=== PATIENT | female | born 1970 | race Caucasian/White ===

== ENCOUNTER 2024-09-06 22:12 | Inpatient (IN) | payer OTHER, MEDICAID, SELFPAY ==
[2024-09-06] VITALS (8 sets, daily range): BP systolic 94–178; BP diastolic 71–89; BMI 16.4; BMI 22.1
--- NOTE | 2024-09-06 17:32 | ED.GENMED ---
Addendum entered and electronically signed by Delfin Matamoros DO 09/08/24 06:20:
30 minutes critical care time
Original Note:
History of Present Illness
General
Chief Complaint: Breathing Problem
Source: patient
Exam Limitations: none
Time Seen by Provider: 09/06/24 16:29
Nursing documentation reviewed up to this point in time: agreed with
History of Present Illness
History of Present Illness:
54-year-old female PCP referral, ex-smoker social drinker has not seen a physician in years was scheduled have cataract surgery referred to primary care clinic apparently found to have tachycardia shortness of breath referred to cardiology who
wanted a Holter and an echo and a stress test apparently insurance interfered with that process, she was able to get her cataracts done well, she has fatigue, shortness of breath, weight loss, nausea trouble sleeping, palpitations
Past History
Past History
ED Past Medical History: Arrthythmia
ED Past Surgical History: Other (Eye surgery)
Social History
Tobacco: Former smoker
Alcohol: Daily (2 glasses of wine a day)
Drug: None
Living: with family
Employment: Employed
Review of Systems
Review of Systems
All Other Systems: Not applicable
Constitutional: Reports weight loss, fatigue and sleep disturbance
EENT: Reports no symptoms
Respiratory: Reports trouble breathing
Cardiac: Denies chest pain
ABD/GI: Denies abdominal pain
: Reports no symptoms
Musculoskeletal: Reports no symptoms
Neurological: Reports dizzy and weakness
Hematologic/Lymphatic: Reports no symptoms
Phy Exam
Physical Exam
Physical Exam:
Physical Exam
General: no apparent distress, not acutely ill
Neck: No goiter no jaundice
Heart: Tachycardia
Lungs: Without wheeze
Abdomen nontender
Neuro: alert and oriented. no focal neurological deficits
Skin: no rash
Psychiatric: well kept. interactive and cooperative
Extremities: no edema. no calf tenderness.
Scores
Heart Failure Risk
Heart Failure Risk Score: Yes
History of Stroke or TIA: No
History of intubation for respiratory distress: No
Heart rate on ED arrival >/= 110: Yes
SaO2 <90% on arrival on room air: No
HR >/=110 during 3min walk test (or too ill to perform test): Yes
ECG has acute ischemic changes: Yes
Urea >/=12mmol/L (BUN 33.6mg/dL): No
Serum CO2>/=35mmol/L: No
Troponin I or T elevated to TN Level (0.4mg/dL): No
NT-proBNP >/=5,000ng/L (5,000pg/ml): Yes
HF Risk Score: 5
Admission Status: VERY HIGH RISK 39.8% Consider admission to hospital
Course
Orders/Labs/Results
Orders:
Orders
09/06/24 15:35
EKG [Electrocardiogram (*1)] Urgent
Reason for Study: Shortness of Breath
EKG- Treatment ONCE
09/06/24 17:16
CR Chest Portable - 1 View Urgent
Comment:
Reason For Exam: soob
Reason Study Needs to be Portable: Patient Unstable
09/06/24 17:27
Add On- LAB Urgent
Tests Added?: magnesium
Cardiac Monitoring- Treatment ONCE
Diltiazem HCl [Cardizem] 10 mg IV NOW STA
09/06/24 18:22
BNP [NT-proBNP] Urgent
Complete Blood Count/With Diff Urgent
Comprehensive Metabolic Panel Urgent
Magnesium Urgent
TSH Reflex To Free T4 Urgent
Troponin I Urgent
09/06/24 18:38
Diltiazem 125 mg/125 ml Nss [Cardizem] 125 mg in 125 ml IV NOW
Initial dose in mg/hr, then titrate:: 10
Titrate to keep:: Heart rate 80-100 bpm
Titrate by mg/hr:: 5 mg/hr
Frequency of titrations (minutes):: 15
Maximum dose in mg/hr:: 15
09/06/24 19:37
EKG [Electrocardiogram (*1)] Urgent
Reason for Study: Tachycardia
09/06/24 19:38
EKG- Treatment ONCE
09/06/24 19:51
Magnesium Sulfate 1 G/D5w [Magnesium Sulfate] 1 gm in 100 ml IV NOW
09/06/24 19:52
CT Chest PE Study Urgent
Comment:
Reason For Exam: tachy sob
09/06/24 21:02
Troponin I Stat
Abnormal Lab Results
09/06/24
18:22
MPV 11.1 H fL
(7.4-10.4)
Chloride 108 H mmol/L
(98-107)
Glucose 108 H mg/dl
(70-99)
Magnesium 1.5 L mg/dl
(1.6-2.3)
AST 46 H U/L
(14-36)
Troponin I 0.045 H* ng/ml
09/06/24 18:22
09/06/24 18:22
Vital Signs
Initial and Last Documented VS:
Initial Vital Signs
Temp Pulse Resp BP Pulse Ox
98.0 F 134 22 134/86 97
09/06/24 15:45 09/06/24 15:45 09/06/24 15:45 09/06/24 15:45 09/06/24 15:45
Last Documented Vital Signs
Temp Pulse Resp BP Pulse Ox
98.0 F 113 17 107/89 95
09/06/24 15:45 09/06/24 20:15 09/06/24 20:15 09/06/24 20:00 09/06/24 20:15
MDM/Problems Addressed
Differential Diagnosis Includes:
Heart failure arrhythmia anemia electrolyte abnormality valvular disease
Chronic conditions affecting care: Arrhythmia
Acute Exacerbation and/or Progression of Chronic Illness: Arrhythmia
*Radiology
Radiology exam reviewed: radiology read reviewed
*Pulse Oximetry
SaO2: 94
Oxygen Mode of Delivery: Room air
Patient hypoxic: no
*EKG
Interpreted by ED Provider?: Yes
Interpretation: abnormal
Comparison EKG: no comparison EKG present
Heart Rate: 124
Rate: tachycardiac
Rhythm: SVT
[place]: left axis deviation
Ischemia: non-specific ST changes
*Correctional Guard Interpretation
Rate: tachycardiac
Interpretation: abnormal
Heart Rate: 124
Rhythm: sinus
*Critical Care Note
Total Time (30-74mins, 75-104mins- exclusive of procedures): 15
Update Note
Update Note:
[address] of the chest noted, no PE positive heart failure
ED Attending Note
-
Portions of this chart may have been created with voice recognition software.� Occasional wrong word or��sound alike� substitutions may have occurred due to the inherent limitations of voice recognition software.
Discharge Plan
Departure
Patient Disposition: Admit
Date of Disposition: 09/06/24
Time of Disposition: 21:05
Admit to: IVU
Presentation/result/management discussed w/ accepting MD/DO: Hospitalist
Patient with high blood pressure during this ER visit?: Yes
Condition: Fair
Covid-19: Not Applicable
Discharge Problem:
Shortness of breath
Referrals:
PRIVATE,PHYSICIAN [Family Provider, Internal Medicine]
Interventions
Interventions:
*Risk Screen - Suicide Last Done: 09/06/24 18:33
*General Assessment Last Done: 09/06/24 15:45
*Neglect/Abuse Screening Last Done: 09/06/24 18:33
*ED- Fall Risk Assessment Last Done: 09/06/24 18:33
*ED COVID-19 Vaccine History Last Done: 09/06/24 18:33
ED- Cardiac Assessment Last Done: 09/06/24 18:33
ED- Pulmonary Assessment Last Done: 09/06/24 18:33
Discharge Date and Time
Print Language: SAMMARINESE
[2024-09-06] MEDS: CARDIZEM 10 MG IV (18:27)
[2024-09-06 18:34] LABS: Hematocrit 42.8 % (37.0-47.0); Hemoglobin 14.4 g/dL (12.0-16.0); Mean Corp Hgb Conc. 33.6 g/dL (33.0-37.0); Mean Corpuscular Volume 88.8 fL (81.0-99.0); Nucleated Red Blood Cells % 0 %; Platelet Count 205 10^3/uL (130-400); Red Cell Dist. Width 13.6 % (11.5-14.5)
[2024-09-06] MEDS: CARDIZEM 125 IV (18:54)
[2024-09-06 19:27] LABS: Troponin I 0.045 ng/ml
[2024-09-06 19:38] LABS: ALT (SGPT) 35 U/L (0-35); AST (SGOT) 46 U/L (14-36); Albumin 4.5 g/dl (3.5-5.0); Alkaline Phosphatase 79 U/L (38-126); Blood Urea Nitrogen 10 mg/dl (7-17); Calcium 9.5 mg/dl (8.4-10.2); Carbon Dioxide 25 mmol/L (22-30); Chloride 108 mmol/L (98-107); Estimated Creatinine Clearance 91 ml/min; Glucose 108 mg/dl (70-99); Magnesium 1.5 mg/dl (1.6-2.3); Potassium 4.0 mmol/L (3.5-5.1); Sodium 138 mmol/L (135-145); Total Protein 7.1 g/dl (6.3-8.2); eGFR > 60.00
[2024-09-06] MEDS: MAGNESIUM SULFATE 100 IV (20:16)
--- NOTE | 2024-09-06 20:19 | HPS.HSE ---
Addendum entered and electronically signed by Wale Ballard DO 09/06/24 22:06:
Patient seen and examined independently. Agree with findings and plan as set forth by MAGDALENA Javed.
Patient is a 54y F with [facility] significant for cataracts who presents to ED from PCP office for evaluation of tachycardia and SOB. Patient states that her symptoms have been ongoing to some extent for at least several months. She notes episodes of
palpitations and dyspnea with exertion. She was seen by physician for the first time in years recently for pre-op eval for cataracts (early?). She was noted to have tachycardia at that time and was referred to Cardiology. Work-up including
stress, echo and Holter monitor was recommended. She completed the Holter monitor so far (interpretation pending).
For the past two days, she has been having increased palpitations and now dyspnea at rest - which is new.
At the time of my examination, patient is resting comfortably. She ambulated to the bathroom and back without chest pain, dyspnea, etc.
Ass:
Acute on Chronic HF - Unknown Type
Tachyarrhythmia
LBBB
Abnormal Troponin
Plan:
Admit to IVU for further evaluation and treatment.
Begin IV heparin given dynamic T wave changes on EKG, mildly elevated troponin, etc.
Patient is symptom-free at present.
Follow troponin to peak.
Echo in AM.
Cardiology consulted for further recommendations / possible ischemic evaluation.
IV Lasix daily for now with bibasilar rales, heart murmur (? acuity) and elevated ProBNP.
Follow for any new / recurrent symptoms.
Original Note:
Family Physician
-
Family Physician:
Chief Complaint
-
tachycardia and shortness of breath
History of Present Illness
Patient is a 54-year-old female with past medical history significant for left bundle branch block and hyperlipidemia who presented to [facility] ED for evaluation of tachycardia and shortness of breath. Patient states that she has not been treated for
any medical problems in the past, only daily medications are hormonal replacement for being post menopausal and daily supplements. Patient reports not feeling well for approximately 2 months and has gotten significantly worse. She reports nausea at
night with dry heaving, decreased appetite and 15-20 pound weight loss, decreased sleep, intermittent palpitations and significant dyspnea at rest. Patient reported last night was so uncomfortable she called her father at midnight and eventually
came for evaluation today. Denies any recent fever, chills, cough, chest pain or changes in bowel or bladder.
Medical History
Past Medical History
Past Medical History: Reports Other
Additional Past Medical History:
hyperlipidemia
left bundle branch block
Past Surgical History: Reports Other
Additional Past Surgical History:
bilateral cataract extraction
adenoidectomy
Social History
Tobacco: Former Smoker (quit 5-6 years ago)
Alcohol: Daily (2 glasses of wine )
Drug: None
Living: Alone
Employment: Employed
Family History
Family History: Other (Father: a-fib, bradycardia, pacemaker; Mother: CVA)
Allergies / Home Medications
Allergies reflects when Allergies were last updated in [facility].
Home Medications with original date entered in [facility]
Allergy/Medication List:
Allergies
Allergy/AdvReac Type Severity Reaction Status Date / Time
No Known Allergies Allergy Unverified 09/06/24 15:44
Review of Systems
-
History Source: Patient
Constitutional: Reports Weight Loss (12-20 pounds ) and Sleep Disturbance (inability to sleep longer than 4 hours)
EENT: Reports No Symptoms
Respiratory: Reports Other (dyspnea at rest )
Cardiac: Reports Palpitations and Other (dyspnea at rest)
Abdomen/GI: Reports Nausea
: Reports No Symptoms
Musculoskeletal: Reports No Symptoms
Skin: Reports No Symptoms
Neurological: Reports No Symptoms
Endocrine: Reports No Symptoms
Hematologic/Lymphatic: Reports No Symptoms
Psych: Reports No Symptoms
Physical Exam
Vital Signs
Vital Signs
Temp Pulse Resp BP Pulse Ox
98.0 F 113 17 107/89 95
09/06/24 15:45 09/06/24 20:15 09/06/24 20:15 09/06/24 20:00 09/06/24 20:15
Physical Exam
General: Well Developed, Well Nourished, No Apparent Distress and Conversant
HEENT: NormoCephalic, Moist mucous membranes and Atraumatic
Respiratory: Clear, Rales and Non Labored Respirations
Cardiac: S1/S2, Regular Rhythm, Tachycardia and Murmur; No Rub or Gallop
Breast: Deferred by me
GI: Soft, Non Tender, Non Distended and Normal Bowel Sounds; No Organomegaly
Rectal: Deferred by Provider
Genito-urinary: Deferred by me
Musculoskeletal: No Clubbing, No Cyanosis and No Edema
Skin: Warm and IV/Catheter Site
Neuro: Awake, Alert, AO x 3 and Nonfocal/grossly intact
Psych: Calm and Intact Judgment/Insight
Laboratory Results
-
09/06/24 18:22
09/06/24 18:22
Laboratory Results
Total Bilirubin 0.8 mg/dl (0.2-1.3) 09/06/24 18:22
AST 46 U/L (14-36) H 09/06/24 18:22
ALT 35 U/L (0-35) 09/06/24 18:22
Alkaline Phosphatase 79 U/L (38-126) 09/06/24 18:22
Troponin I 0.045 ng/ml H* 09/06/24 18:22
Data Reviewed
-
Diagnostic Radiology: Report Reviewed by me (CXR: Mild cardiomegaly. No focal airspace disease.)
CT Scan: Report Reviewed by me (Chest: 1. No evidence of central or segmental pulmonary embolism. 2. Cardiomegaly with pronounced dilation of the left ventricle. There are findings of mild pulmonary edema with a small right and trace left pleural
effusions with associated bibasilar atelectasis.)
Medical Tests (Nuc Med, Echo, EKG etc): Report Reviewed by me (EKG: SINUS TACHYCARDIA LEFT BUNDLE BRANCH BLOCK)
Lab Data: Labs Reviewed by me (Mag 1.5, trop 0.045, pBNP 6210)
Impression/Plan
-
IMPRESSION/PLAN:
#tachycardia and dyspnea at rest 2/2 NSTEMI vs. arrhythmia vs. PE vs. unstable angina
#CHF
Mag 1.5, trop 0.045, pBNP 6210
EKG: SINUS TACHYCARDIA
LEFT BUNDLE BRANCH BLOCK
CXR: Mild cardiomegaly. No focal airspace disease.
Chest CT: 1. No evidence of central or segmental pulmonary embolism.
2. Cardiomegaly with pronounced dilation of the left ventricle. There are findings of mild pulmonary edema with a small right and trace left pleural effusions with associated bibasilar atelectasis.
- Admit to IVU
- Consult Cardiology
- start heparin gtt
- trend troponin
- stop diltiazem
- IV Lasix
- daily weights
- I & Os
- ECHO in AM
#hyperlipidemia
#left bundle branch block
Code status: full code
DVT prophylaxis: heparin gtt
[2024-09-06] MEDS: ASPIRIN 325 MG PO (22:10)
[2024-09-06] MEDS: LASIX 40 MG IV (22:11)
[2024-09-06 22:13] LABS: Troponin I 0.060 ng/ml
[2024-09-06] MEDS: HEPARIN 3800 UNITS IV (22:24)
[2024-09-06] MEDS: HEPARIN 25000 UNITS/250 ML IV (22:25)
[2024-09-06] MEDS: FLUSH (NSS) 1 FLUSH IV (22:27)
[2024-09-06 22:37] LABS: Hematocrit 37.2 % (37.0-47.0); Hemoglobin 12.8 g/dL (12.0-16.0); Mean Corp Hgb Conc. 34.4 g/dL (33.0-37.0); Mean Corpuscular Volume 89.2 fL (81.0-99.0); Platelet Count 181 10^3/uL (130-400); Red Cell Dist. Width 13.3 % (11.5-14.5)
[2024-09-06 22:48] LABS: APTT 26.0 Sec (23.4-35.0)
[2024-09-07] VITALS (25 sets, daily range): BP systolic 71–115; BP diastolic 57–83; BMI 21.6; BMI 21.3
[2024-09-07 01:13] LABS: Troponin I 0.065 ng/ml
--- NOTE | 2024-09-07 01:51 | PTCARENOTE ---
Pt. rec'd into room 2258 from ED AAO x 3, VSS, ST 110's (at rest) on the monitor. No complaints of chest pain/discomfort/palpitations/ or shortness of breath. Hep gtt infusing at 950 units/hr as per order. Troponin and EKG completed. Pt.
independent and ambulatory in room. Plan of care discussed, understanding verbalized. Pt. resting quietly.
[2024-09-07 04:53] LABS: Hematocrit 36.7 % (37.0-47.0); Hemoglobin 12.5 g/dL (12.0-16.0); Mean Corp Hgb Conc. 34.1 g/dL (33.0-37.0); Mean Corpuscular Volume 88.2 fL (81.0-99.0); Platelet Count 186 10^3/uL (130-400); Red Cell Dist. Width 13.2 % (11.5-14.5)
[2024-09-07 05:04] LABS: APTT 58.1 Sec (23.4-35.0)
[2024-09-07 05:25] LABS: ALT (SGPT) 28 U/L (0-35); AST (SGOT) 36 U/L (14-36); Albumin 3.7 g/dl (3.5-5.0); Alkaline Phosphatase 74 U/L (38-126); Blood Urea Nitrogen 11 mg/dl (7-17); Calcium 8.5 mg/dl (8.4-10.2); Carbon Dioxide 27 mmol/L (22-30); Chloride 108 mmol/L (98-107); Estimated Creatinine Clearance 107 ml/min; Glucose 99 mg/dl (70-99); HDL Cholesterol 72 mg/dl; LDL Cholesterol, Calculated 94 mg/dl; Potassium 3.4 mmol/L (3.5-5.1); Sodium 137 mmol/L (135-145); Total Protein 6.0 g/dl (6.3-8.2); Very Low Density Lipoprotein 14 mg/dl (0-30); eGFR > 60.00
[2024-09-07 05:40] LABS: Troponin I 0.050 ng/ml
--- NOTE | 2024-09-07 07:47 | PTCARENOTE ---
Assumed care. Patient sleeping, arouses easily, AO x3. ST BBB HR 111, BP 101/78, no edema, lungs CTA, 92% r/a. Denies pain, states intermittent palpitations overnight. NPO. Heparin gtt at 1150 units/hr. Lights dimmed, call thomas in reach
--- NOTE | 2024-09-07 07:47 | CON.CAR ---
Addendum entered and electronically signed by Demarco Child MD 09/07/24 10:09:
I saw and examined the patient.
The INK PRINTER's note was reviewed and I agree with the note.
54-year-old woman with recently diagnosed l LBBB hypercholesterolemia previous history of smoking who presents with shortness of breath. Patient states that she did not routinely see doctors but then required treatment of her cataract which
prompted her evaluation in June. This revealed that her heart rate was elevated and she had left bundle branch block. Seen by Dr. Junior. Additional outpatient testing ordered but was delayed due to insurance issues. She has had increased shortness
of breath over the past month with some periods of orthopnea no lower extremity edema and then this week noticed shortness of breath with low-level exertion. On presentation to the ER she was noticed to have sinus tachycardia but then also had
elevated heart rates in the 130s that were more suggestive of atrial tachycardia. Echocardiogram today shows new cardiomyopathy with severely reduced left ventricular function estimated ejection fraction 10 to 15% with moderate to severe mitral
regurgitation, moderate tricuspid regurgitation and severe pulmonary hypertension.
.
Acute heart failure with reduced ejection fraction
Cardiomyopathy.
- New diagnosis
- Severely reduced left ventricular function
- Duration unknown
- Worsening symptoms over the last month.
-Will assess response to cautious diuresis
-With periods of atrial tachycardia we will add low-dose beta-nahid
-GDMT will be added cautiously and may be limited by BP.
-Will have case management look cost of Farxiga and Entresto
-Plan for right and left heart catheterization this admission-
.
Abnormal troponin.
- Etiology unclear
- May be non-SD troponin related to heart failure but need to assess for obstructive coronary artery disease considering presentation.
- Continue aspirin
- Can continue IV heparin until cardiac catheterization result is complete.
.
Tachycardia. Patient's had both sinus tachycardia and evidence of atrial tachycardia. Change in P wave morphology on one of the ECGs with heart rates in the 130s. Without clear evidence of atrial fibrillation or atrial flutter. No clear
indication for long-term anticoagulation at this point we will continue to monitor closely on telemetry.
- Cautious addition of low-dose beta-nahid
Original Note:
Consultation
Consultation Request
Date/Time Consultation Requested: 09/07/2024 00:10
Date/Time Consultation Performed: 09/07/2024 07:45
Requesting Provider: MAGDALENA Javed
Performing Provider: MAGDALENA Hood for Dr. Child
Reason for Consultation: Shortness of breath
Medical History
-
Chief Complaint: Shortness of breath
History of Present Illness:
Kellie Evans is a 54 year old female (known to Dr. 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 She endorsed associated fatigue, poor sleep, and palpitations. She decided to seek ER evaluation when
she had shortness of breath at rest. This has been escalating. She cannot recall any recent events of chest pain nor viral illness. She is feeling improved since starting furosemide.
She was seen by Dr. Junior as a new patient last month. She endorsed chest pain, shortness of breath, and tachycardia. A lexiscan nuclear stress test, echocardiogram, and extended cardiac monitoring were ordered. There were challenges with the
patients insurance. She cannot have testing at the hospital or [facility]. It had to be done at 'an imaging facility'. She was currently trying to figure out where testing would be approved.
Past Medical History
Past Medical History: Hypercholesterolemia and Other (LBBB)
Past Surgical History: Other (Cataracts)
Social History
Tobacco: Former Smoker
Alcohol: Daily (2 glasses of wine per day)
Drug: None
Personal:
Employment: Employed
Family History
Family History: CAD ([employer]GM SD in 60s.)
Allergies / Home Medications
Allergy/AdvReac Type Severity Reaction Status Date / Time
No Known Allergies Allergy Unverified 09/06/24 15:44
�Medication �Instructions �Recorded �Confirmed �Type
Dental Pre/Probiotic 1 cap PO DAILY 09/06/24 09/06/24 History
Estroven 1 tab PO DAILY 09/06/24 09/06/24 History
L-Lysine 2 tab PO DAILY 09/06/24 09/06/24 History
biotin 10,000 mcg chewable tablet 20,000 mcg PO BID 09/06/24 09/06/24 History
(Hair, Skin and Nails (biotin))
cholecalciferol (vitamin D3) 25 25 mcg PO BID 09/06/24 09/06/24 History
mcg (1,000 unit) tablet
pvlmoqtsk-ZDY-JR-acetaminophen 7.5 30 ml PO HSPRN PRN sleep 09/06/24 09/06/24 History
mg-60 [id number]/30mL oral liqd
rdkukqsodc-znslsxsvdguzulp-hnwpphfjdybkcfug-acetaminophen 2 cap PO HSPRN PRN sleep 09/06/24 09/06/24 History
capsule
magnesium 1 tab PO DAILY 09/06/24 09/06/24 History
milk thistle 2 tab PO BID 09/06/24 09/06/24 History
dflaseni-slc-vfjlm ac 400 1 tab PO DAILY 09/06/24 09/06/24 History
mcg-calcium carb 500 mg-vit K1 20
mcg tablet (Women's 50 Plus
Multivitamin)
vitamin B complex 1 tab PO DAILY 09/06/24 09/06/24 History
Review of Systems
-
History Source: Patient
All other systems: Negative unless noted
Constitutional: Fatigue
EENT: No Symptoms
Respiratory: Trouble Breathing
Cardiac: No Symptoms
Abdomen/GI: Nausea
: No Symptoms
Musculoskeletal: No Symptoms
Skin: No Symptoms
Neurological: No Symptoms
Endocrine: No Symptoms
Hematologic/Lymphatic: No Symptoms
Physical Exam
Vital Signs
Temp Pulse Resp BP Pulse Ox
97.8 F 104 16 100/77 96
09/07/24 03:20 09/07/24 07:00 09/07/24 03:20 09/07/24 03:20 09/07/24 03:20
Lab Results
09/07/24 04:29
09/07/24 04:28
Troponin I 0.050 ng/ml H* 09/07/24 04:29
Kkv-X-Ahzqlcnwakg Pept 6210 pg/ml 09/06/24 18:22
Physical Exam
General: Well Developed, Well Nourished and No Apparent Distress
HEENT: Normocephalic, Anicteric and Moist Mucous Membranes
Respiratory: Clear and Non Labored Respirations
Cardiac: S1/S2, Regular Rhythm and Murmur
Breast: Deferred by me
GI: Soft, Non Tender, Non Distended and Normal Bowel Sounds
Rectal: Deferred by Provider
Genito-urinary: No Costovertebral Tender
Musculoskeletal: No Clubbing and No Cyanosis
Skin: Warm and Dry
Neuro: AO x 3
Hematologic/Lymphatic: No Lymphadenopathy
Psych: Calm
Impression / Plan
-
I/P: 54F with LBBB & mixed hyperlipidemia presents with shortness of breath and tachycardia.
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 Junior
HFrEF (EF 10-15%), new, acute
Cardiomyopathy, type unknown
-Short of breath, proBNP 6210, CT with dilated LV & trace pleural effusion
-TTE with severely dilated LV
-Diuresis with furosemide 40mg IV BID, this requires intensive monitoring
-GDMT as tolerated:
-SIVAN/ARB/ARNI: Can consider if BP allows
-SGLT2 inhibitor: Case management to haro
-Aldosterone agonist: Can consider if BP allows
-Beta nahid: Start metoprolol succinate 12.5mg daily
-Isosorbide/Hydralazine:�Not indicated
-ICD: Re-assess LVEF in 3 months after max tolerated therapy
-Cardiac catheterization today
-HF education
-Trend daily weight, I/O, and BMP with diuresis
Abnormal troponin, non-ischemic myocardial injury in the setting of acute HF
-CP free
-Remains flat (0.045, 0.060, 0.065, 0.050)
Tachycardia
-Some telemetry with concern for atrial tachycardia
-Beta nahid as above
-TSH 4.14
LBBB
-Seen last month, chronicity unknown, doesn't frequently seek medical care
Mitral regurgitation, moderate to severe
-Diuresis as above
Tricuspid regurgitation, moderate, PASP 65-70mmHg
Dyslipidemia
-Not on a statin as ASCVD risk was low (1.1%)
-Re evaluate after testing
Daily EtOH, 2 glasses every evening
Former smoker, continued cessation recommended
SUBJECTIVE:
As above.
Data Reviewed
-
EKG: Report Reviewed by me (Sinus tach, LBBB)
Medical Tests (Nuc Med, Echo etc): Report Reviewed by me
Labs: Labs Reviewed by me
Old Records: Reviewed
[2024-09-07] MEDS: KCL 40 MEQ PO (08:31)
[2024-09-07] MEDS: ASPIR LOW (ENTERIC COATED) 81 MG PO (08:31)
[2024-09-07] MEDS: LASIX 40 MG IV ×2 (08:31→17:19)
[2024-09-07 09:45] LABS: Glycohemoglobin (HgbA1c) 5.6 % (4.0-5.6)
--- NOTE | 2024-09-07 11:43 | PTCARENOTE ---
Repeated EKG, limb lead reversal. Able to eat a light snack, NPO for cath later today
--- NOTE | 2024-09-07 12:03 | W.PN.HOSP.TC ---
Today's Communication/Plan
-
Cardiac cath planned for today
Continue Lasix and heparin drip
Goal-directed medical therapy for cardiomyopathy when blood pressure allows
Assessment / Plan
Assessment / Plan
54-year-old female presented with tachycardia and shortness of breath. Patient was supposed to have cataract surgery and was found to be tachycardic during the preop. She saw cardiology as outpatient and the plan was for her to get outpatient
monitor as well as an echo and a stress test. Insurance declined echo and stress test. She has been feeling more short of breath lately which prompted her to come to the ER.
CT PE study-no evidence of PE. Cardiomegaly with pronounced dilation of the LV. Findings suggestive of mild pulmonary edema with small right and left pleural effusions
Echo 09/07/2024-dilated LV with severely reduced LV SF. EF 10 to 15%. Moderate to severe MR. Moderate TR. Severe pulmonary hypertension RA pressure 65 to 70 mmHg.
CVS: S1-S2 normal
Chest: CTA B/L
Abdomen: Soft, NT / Bowel sounds present
Extremities: No edema, normal pulses
VESSEL SLAGMAN: Non focal exam
# Acute HFrEF
Cardiomyopathy-unclear reason
Patient for cardiac catheterization today
Tachyrrhythmia/left bundle branch block abnormal troponin
Continue IV Lasix
Continue IV heparin
Beta-nahid
Rest of the goal-directed therapy when blood pressure stable
Intake and output charting
Discussed with cardiology and reviewed images of the echo with cardiology
# Tachyrrhythmia /left bundle branch block abnormal troponin
# Hypomagnesemia-corrected
# Hypokalemia-correct
# 2 glasses of wine every night-add Thiamine. Watch for any withdrawal.
# Ex-smoker
# DVT prophylaxis-Heparin Drip
# Full code
Discussed with cardiology
Anticipated Discharge: 24 - 48 hours
Subjective/Interval History
-
Date of Service: September 07, 2024
Objective Data
-
Labs:
Laboratory Results
09/07/24 09/07/24 09/07/24
04:28 04:29 11:15
WBC 5.3
Hgb 12.5
Hct 36.7 L
Plt Count 186
APTT 58.1 H Pending
Sodium 137
Potassium 3.4 L
Chloride 108 H
Carbon Dioxide 27
BUN 11
Creatinine 0.6
Glucose 99
Calcium 8.5
Total Bilirubin 0.8
AST 36
ALT 28
Alkaline Phosphatase 74
Vital Signs:
Vital Signs
Temp Pulse Resp BP Pulse Ox
98 F 115 18 106/82 98
09/07/24 11:42 09/07/24 11:44 09/07/24 11:42 09/07/24 11:44 09/07/24 11:44
I&O
09/06/24 09/07/24 09/08/24
06:59 06:59 06:59
Output Total 600 / 600
Balance -600 / -600
--- NOTE | 2024-09-07 13:10 | CM ---
spoke to pt in room, she is prev indep, lives alone in a 2 story home with 1 step to enter. she denies any dme's or dc planning needs. plan is for dc to [facility].
--- NOTE | 2024-09-07 13:11 | CM ---
priced brando,glenn and leonelo with pt's perscript plan- she is only covered with a 10% disc for top tier meds. approx cost of each med monthly is $500.
[2024-09-07 13:21] LABS: APTT 67.2 Sec (23.4-35.0)
[2024-09-07] MEDS: TOPROL XL 12.5 MG PO (14:18)
[2024-09-07] MEDS: VITAMIN B1 100 MG PO ×2 (14:18→19:51)
--- NOTE | 2024-09-07 18:00 | PTCARENOTE ---
Report called to labor and delivery registered nurse. Voided and pants removed, heparin placed on hold
--- NOTE | 2024-09-07 19:09 | ITS.CL.PN ---
Offset Press Assistant - Procedure Note
Procedure
Procedure Note:
CARDIAC CATHETERIZATION REPORT
Date of Procedure: 09/07/2024
Referring: Dr. Demarco Child MD
Indication: New cardiomyopathy with severely reduced ejection fraction
PROCEDURE(S)
1. right heart catheterization
2. left heart catheterization
3. coronary angiography
ACCESS
1. 6F right radial artery (closure: radial band)
2. 5F right antecubital vein (closure: manual hemostasis)
CATHETERS
1. 5F [place]
2. 6F JR4
3. 6F JL3.5
MODERATE SEDATION: 25 minutes of moderate sedation was utilized. An independent medical illustrator was present to assist with and help manage the patient's level of consciousness and physiologic status.
HEMODYNAMIC DATA
LV 99/28 (EDP 34) mmHg
AO 100/77 (mean 89) mmHg
RA 11 mmHg
RV 45/8 (EDP 13) mmHg
PA 42/37 (mean 39) mmHg
PCWP 37 mmHg
SaO2 95.8%
SvO2 59.0%
Hb 13.8 g/dL
CO/CI 3.10/1.81 L/min/m2 --> at heart rate of 100-120 in sinus rhythm, this implies a stroke volume of 26-31 mL (indexed 15-18 mL/m2)
SVR 2011 dsc*-5
PVR 0.7 Wood units
CORONARY ANGIOGRAPHY
Dominance: left
LM: Large, normal
LAD: Large vessel giving rise to a moderate caliber D1, large D2, and wrapping around the apex. There is no coronary artery disease.
LCx: Large vessel giving rise to moderate caliber ramus/OM1, large OM2, and moderate caliber LPDA. There is no coronary artery disease.
RCA: Moderate caliber nondominant vessel with no disease.
RADIATION: dose 126 mGy; DAP 12.9 Gy*cm2; fluoroscopy time 4.6 min
CONCLUSIONS
1. Evidence of cardiogenic shock with severely elevated biventricular filling pressures, moderate postcapillary pulmonary hypertension, and severely reduced cardiac output with stroke-volume index 15-18 mL/m2 in setting of sinus tachycardia. Of
note, PA pulsatility is severely reduced with Barry of <0.2. PA pressure and PCWP confirmed in both right and left lungs.
2. Normal coronary arteries and a left dominant system.
RECOMMENDATIONS
1. Patient has evidence on echo and cath of severe non-ischemic cardiomyopathy. Despite her profoundly abnormal hemodynamics, she is relatively asymptomatic with minimal evidence of end organ hypoperfusion. However, I am very concerned that this is
largely due to her young age and ability to compensate for profound low stroke index with sinus tachycardia.
2. Recommend aggressive diuresis to achieve 1 to 2 L negative. Would not add beta-nahid for now in setting of sinus tachycardia which may likely be necessary and compensatory. Start low dose Entresto for afterload reduction. Will need GDMT
optimization and workup for possible etiologies of NICM.
3. Patient may require evaluation for advanced therapies. Pending course will determine if this can be done on an outpatient basis or if inpatient transfer is necessary.
Copy to: Dr. Maximo Junior MD, PhD (ground equipment mechanic); Dr. Irwin Orourke MD (PCP)
Signed: Sky Dominguez MD, PhD
--- NOTE | 2024-09-07 19:19 | PTCARENOTE ---
Report received from the public works laborer. Report given to Fang RUEALS. Right radial intact with 8 cc of air. Right brachial intact with dry sterile dressing. BP 94/79 HR 119, ST, POX 99% on room air
[2024-09-07] MEDS: ENTRESTO 24 MG/26 MG 1 TAB PO (19:50)
--- NOTE | 2024-09-07 23:10 | W.PN.UPDATE ---
Update Note
Progress Note Update
Hypotension with 70s-80s/60s, hr 80s. Asymptomatic. Patient started on lasix yesterday and received a dose of Entresto around 8p. Midodrine 5mg x2 ordered during the night.
[2024-09-08] VITALS (14 sets, daily range): BP systolic 73–99; BP diastolic 51–73; BMI 20.6
--- NOTE | 2024-09-08 00:39 | PTCARENOTE ---
Received patient at change of shift. ST on the monitor, HR in the 100s. R radial band in place, band removed as per protocol, see documentation. R radial dressing CDI. Blood pressures 70-80s/50-60s, HR in the 100s, asymptomatic. ACADEMY EDUCATION DIRECTOR Jr Trinh
notified, 5mg Midodrine administered as per order. No complaints from pt at this time, call thomas within reach.
[2024-09-08 04:33] LABS: Hematocrit 41.6 % (37.0-47.0); Hemoglobin 14.3 g/dL (12.0-16.0); Mean Corp Hgb Conc. 34.4 g/dL (33.0-37.0); Mean Corpuscular Volume 87.9 fL (81.0-99.0); Platelet Count 205 10^3/uL (130-400); Red Cell Dist. Width 13.5 % (11.5-14.5)
[2024-09-08 05:01] LABS: Blood Urea Nitrogen 12 mg/dl (7-17); Calcium 8.8 mg/dl (8.4-10.2); Carbon Dioxide 26 mmol/L (22-30); Chloride 104 mmol/L (98-107); Estimated Creatinine Clearance 91 ml/min; Glucose 103 mg/dl (70-99); Magnesium 1.5 mg/dl (1.6-2.3); Potassium 3.5 mmol/L (3.5-5.1); Sodium 135 mmol/L (135-145); eGFR > 60.00
[2024-09-08] MEDS: MAGNESIUM SULFATE 100 IV (05:56)
[2024-09-08] MEDS: KCL 20 MEQ PO ×2 (05:57→09:17)
--- NOTE | 2024-09-08 06:14 | PTCARENOTE ---
Patients blood pressure 85/64, asymptomatic. CAR CHECKER made aware, another 5mg of Midodrine administered as per CAR CHECKER. Electrolytes repleted in am.
--- NOTE | 2024-09-08 07:02 | W.PN.HOSP.TC ---
Today's Communication/Plan
-
diuresis
follow up Cardiology recs on GDMT, patient hypotensive overnight, asymptomatic
Assessment / Plan
Assessment / Plan
54-year-old female presented with tachycardia and shortness of breath. Patient was supposed to have cataract surgery and was found to be tachycardic during the preop. She saw cardiology as outpatient and the plan was for her to get outpatient
monitor as well as an echo and a stress test. Insurance declined echo and stress test. She has been feeling more short of breath lately which prompted her to come to the ER.
CT PE study-no evidence of PE. Cardiomegaly with pronounced dilation of the LV. Findings suggestive of mild pulmonary edema with small right and left pleural effusions
Echo 09/07/2024-dilated LV with severely reduced LV SF. EF 10 to 15%. Moderate to severe MR. Moderate TR. Severe pulmonary hypertension RA pressure 65 to 70 mmHg.
Cardiac Cath 09/07
CONCLUSIONS
1. Evidence of cardiogenic shock with severely elevated biventricular filling pressures, moderate postcapillary pulmonary hypertension, and severely reduced cardiac output with stroke-volume index 15-18 mL/m2 in setting of sinus tachycardia. Of
note, PA pulsatility is severely reduced with Barry of <0.2. PA pressure and PCWP confirmed in both right and left lungs.
2. Normal coronary arteries and a left dominant system.
# Acute HFrEF
-new finding depressed EF, EF 10-15%
-s/p cardiac cath on 09/07 with evidence of cardiogenic shock with severely elevated biventricular filling pressures, reduced cardiac output; no significant CAD
-continue IV Lasix
-low dose Entresto initiated
-beta-nahid stopped
-appreciate Cardiology
# Tachyarrhythmia /left bundle branch block abnormal troponin
# Hypomagnesemia-corrected
# Hypokalemia-correct
# 2 glasses of wine every night-add Thiamine. Watch for any withdrawal.
# Ex-smoker
# DVT prophylaxis- start Lovenox this evening
# Full code
51 minutes spent on patient care
Anticipated Discharge: > 48 hours
Subjective/Interval History
-
Date of Service: September 08, 2024
feeling well at rest
denies palpitations
Objective Data
-
Labs:
Laboratory Results
09/07/24 09/08/24
20:00 04:07
WBC 4.9
Hgb 14.3
Hct 41.6
Plt Count 205
APTT Cancelled
Sodium 135
Potassium 3.5
Chloride 104
Carbon Dioxide 26
BUN 12
Creatinine 0.7
Glucose 103 H
Calcium 8.8
Vital Signs:
Vital Signs
Temp Pulse Resp BP Pulse Ox
97.7 F 77 18 89/73 97
09/08/24 04:09 09/08/24 05:29 09/08/24 04:09 09/08/24 05:29 09/08/24 04:09
I&O
09/07/24 09/08/24 09/09/24
06:59 06:59 06:59
Intake Total 480 / 480
Output Total 2049
Balance -1570 / -1570
Review of Systems
-
History Source: Patient
All other systems: Reviewed and negative
Physical Exam
-
General: No Apparent Distress
HEENT: PERRLA
Respiratory: Clear to Auscultation
Cardiac: S1/S2 and JVD
GI: Soft and Nontender
Musculoskeletal: No Edema
Skin: Warm and Dry; Negative Rash
Neuro: AO x 3
Psych: Calm
Data Reviewed
-
Diagnostic Radiology: Report Reviewed by me
Labs: Labs Reviewed by me
[2024-09-08] MEDS: LASIX IV (08:00)
[2024-09-08] MEDS: VITAMIN B1 100 MG PO ×2 (09:14→19:57)
[2024-09-08] MEDS: FLUSH (NSS) 1 FLUSH IV ×2 (09:18→17:03)
[2024-09-08] MEDS: ENTRESTO 24 MG/26 MG PO ×2 (09:59→19:57)
--- NOTE | 2024-09-08 10:00 | PTCARENOTE ---
Received patient this morning sitting oob in the chair. Seen by the hospitalist and received breakfast as ordered. Instructed on need to maintain 1440 ml fluid restriction. Radial and brachial sites are dry and intact. Unable to give AM dose of
entresto due to low BP. Spoke with Dr. Ordonez and will hold off on IV lasix this morning and administer later if BP allows. Patient offers no complaints, call thomas in reach.
--- NOTE | 2024-09-08 10:03 | W.PN.CD ---
Today's Communication / Plan
-
IV diuresis as able
Will discuss with Elbert about f/u
Will discuss need for possible swan for guided diuresis
Impression / Plan
-
I/P: 54F with LBBB & mixed hyperlipidemia presents with shortness of breath and tachycardia.
Primary cable cutter and swager: Dr. Junior
HFrEF (EF 10-15%), new, acute
NICMO
-Short of breath, proBNP 6210, CT with dilated LV & trace pleural effusion
-TTE with severely dilated LV
-Diuresis with furosemide 40mg IV BID, this requires intensive monitoring
-GDMT as tolerated:
-SIVAN/ARB/ARNI: Low dose Entresto cause BP to be about 70
-SGLT2 inhibitor: Case management to haro
-Aldosterone agonist: Can consider if BP allows
-Beta nahid: BP is marginal
-Isosorbide/Hydralazine:�Not indicated
-ICD: Re-assess LVEF in 3 months after max tolerated therapy
-Cardiac catheterization September 07 below
-HF education
-Trend daily weight, I/O, and BMP with diuresis
Abnormal troponin, non-ischemic myocardial injury in the setting of acute HF
-CP free
-Remains flat (0.045, 0.060, 0.065, 0.050)
Tachycardia
-Some telemetry with concern for atrial tachycardia
-Beta nahid as above
-TSH 4.14
LBBB
-Seen last month, chronicity unknown, doesn't frequently seek medical care
Mitral regurgitation, moderate to severe
-Diuresis as above
Tricuspid regurgitation, moderate, PASP 65-70mmHg
Dyslipidemia
-Not on a statin as ASCVD risk was low (1.1%)
-Re evaluate after testing
Daily EtOH, 2 glasses every evening
Former smoker, continued cessation recommended
SUBJECTIVE:
feeling improved
Cath September 07: CONCLUSIONS
1. Evidence of cardiogenic shock with severely elevated biventricular filling pressures, moderate postcapillary pulmonary hypertension, and severely reduced cardiac output with stroke-volume index 15-18 mL/m2 in setting of sinus tachycardia. Of
note, PA pulsatility is severely reduced with Barry of <0.2. PA pressure and PCWP confirmed in both right and left lungs.
2. Normal coronary arteries and a left dominant system.
Physical Exam
Vital Signs/Labs
Vital Signs
Temp Pulse Resp BP Pulse Ox
97.7 F 92 18 89/69 97
09/08/24 08:24 09/08/24 09:59 09/08/24 08:24 09/08/24 09:59 09/08/24 08:24
09/07/24 09/08/24 09/09/24
06:59 06:59 06:59
Actual Weight 135 lb 12.876 oz 131 lb 2.801 oz
09/08/24 04:07
09/08/24 04:07
APTT Cancelled 09/07/24 20:00
Magnesium 1.5 mg/dl (1.6-2.3) L 09/08/24 04:07
Triglycerides 73 mg/dl (10-149) 09/07/24 04:28
LDL Cholesterol, Calc 94 mg/dl 09/07/24 04:28
VLDL Cholesterol, Calc 14 mg/dl (0-30) 09/07/24 04:28
HDL Cholesterol 72 mg/dl 09/07/24 04:28
09/06/24
18:22
Rbc-S-Yddnakkvper Pept 6210
LAB Results
09/06/24 09/06/24 09/07/24
18:22 21:12 00:33
Troponin I 0.045 H* 0.060 H* D 0.065 H*
09/07/24 09/07/24
04:29 06:11
Troponin I 0.050 H* Cancelled
Physical Exam
Constitutional: No acute distress and Comfortable
EENT: Anicteric
Cardiovascular: Rhythm & rate is regular and Pedal edema present (trace)
Respiratory: Respiratory effort normal and Crackles Present (mild)
GI: Soft
Neuro/Psych: AO x 3
Data Reviewed
-
Date of Service: September 08, 2024
Medical Decision Making: Reviewed Test Results
EKG: Tracing Personally Visualized and interpreted (sr)
Echo: Report Reviewed by me
Labs: Labs Reviewed by me
[2024-09-08] MEDS: TOPROL XL 12.5 MG PO (14:42)
[2024-09-08] MEDS: LASIX 40 MG IV (17:02)
[2024-09-08] MEDS: LOVENOX 40 MG SC (18:33)
--- NOTE | 2024-09-08 20:46 | PTCARENOTE ---
Received patient at change of shift. ST on the monitor, HR in the 110s. R radial and R brachial dressings CDI. No complaints from pt at this time, call thomas within reach.
[2024-09-09] VITALS (10 sets, daily range): BP systolic 86–117; BP diastolic 63–93; BMI 20.8
[2024-09-09 05:58] LABS: Blood Urea Nitrogen 21 mg/dl (7-17); Calcium 9.0 mg/dl (8.4-10.2); Carbon Dioxide 27 mmol/L (22-30); Chloride 105 mmol/L (98-107); Estimated Creatinine Clearance 78 ml/min; Glucose 102 mg/dl (70-99); Magnesium 1.7 mg/dl (1.6-2.3); Potassium 4.1 mmol/L (3.5-5.1); Sodium 135 mmol/L (135-145); eGFR > 60.00
--- NOTE | 2024-09-09 07:30 | W.PN.HOSP.TC ---
Today's Communication/Plan
-
discussing plan with Cardiology
continue diuresis and GDMT
Assessment / Plan
Assessment / Plan
54-year-old female presented with tachycardia and shortness of breath. Patient was supposed to have cataract surgery and was found to be tachycardic during the preop. She saw cardiology as outpatient and the plan was for her to get outpatient
monitor as well as an echo and a stress test. Insurance declined echo and stress test. She has been feeling more short of breath lately which prompted her to come to the ER.
CT PE study-no evidence of PE. Cardiomegaly with pronounced dilation of the LV. Findings suggestive of mild pulmonary edema with small right and left pleural effusions
Echo 09/07/2024-dilated LV with severely reduced LV SF. EF 10 to 15%. Moderate to severe MR. Moderate TR. Severe pulmonary hypertension RA pressure 65 to 70 mmHg.
Cardiac Cath 09/07
CONCLUSIONS
1. Evidence of cardiogenic shock with severely elevated biventricular filling pressures, moderate postcapillary pulmonary hypertension, and severely reduced cardiac output with stroke-volume index 15-18 mL/m2 in setting of sinus tachycardia. Of
note, PA pulsatility is severely reduced with Barry of <0.2. PA pressure and PCWP confirmed in both right and left lungs.
2. Normal coronary arteries and a left dominant system.
# Acute HFrEF
-new finding depressed EF, EF 10-15%
-s/p cardiac cath on 09/07 with evidence of cardiogenic shock with severely elevated biventricular filling pressures, reduced cardiac output; no significant CAD
-continue IV Lasix
-low dose Entresto initiated, patient didn't receive on 09/08 given SBP < 90
-beta-nahid low dose resumed
-appreciate Cardiology - follow up further recommendations, patient without significant weight drop overnight
# Tachyarrhythmia /left bundle branch block abnormal troponin
NSVT seen on outpatient holter
-metop XL initiated as above
# Hypomagnesemia-
give additional 1G Mag today
# Hypokalemia-corrected
# 2 glasses of wine every night-add Thiamine. Watch for any withdrawal.
# Ex-smoker
# DVT prophylaxis- start Lovenox this evening
# Full code
51 minutes spent on patient care
Anticipated Discharge: > 48 hours
Subjective/Interval History
-
Date of Service: September 09, 2024
didn't urinate a significant amount yesterday
got out of bed yesterday, feeling okay
Objective Data
-
Labs:
Laboratory Results
09/09/24
04:40
Sodium 135
Potassium 4.1
Chloride 105
Carbon Dioxide 27
BUN 21 H
Creatinine 0.8
Glucose 102 H
Calcium 9.0
Vital Signs:
Vital Signs
Temp Pulse Resp BP Pulse Ox
97.7 F 102 20 89/70 97
09/09/24 06:49 09/09/24 06:49 09/09/24 06:49 09/09/24 06:49 09/09/24 06:49
I&O
09/08/24 09/09/24 09/10/24
06:59 06:59 06:59
Intake Total 480 / 480 720 / 720
Output Total 2049 / 2049 800 / 800
Balance -1570 / -1570 -80 / -80
Review of Systems
-
History Source: Patient
All other systems: Reviewed and negative
Physical Exam
-
General: No Apparent Distress
HEENT: PERRLA
Respiratory: Clear to Auscultation
Cardiac: S1/S2 and JVD
GI: Soft and Nontender
Musculoskeletal: No Edema
Skin: Warm and Dry; Negative Rash
Neuro: AO x 3
Psych: Calm
Data Reviewed
-
Diagnostic Radiology: Report Reviewed by me
Labs: Labs Reviewed by me
[2024-09-09] MEDS: MAGNESIUM SULFATE 102 GRAMS IV (08:21)
[2024-09-09] MEDS: FLUSH (NSS) 2 FLUSH IV (08:21)
[2024-09-09] MEDS: VITAMIN B1 100 MG PO ×2 (08:22→20:10)
[2024-09-09] MEDS: ENTRESTO 24 MG/26 MG PO (08:22)
--- NOTE | 2024-09-09 09:35 | PTCARENOTE ---
Patient resting in bed this morning, offers no complaints. BP remains low, unable to give entresto as per parameters, mag rider infusing now.
--- NOTE | 2024-09-09 10:28 | W.PN.CD ---
Today's Communication / Plan
-
increase lasix to 80mg IV bid
will try hydralazine 10mg tid for afterload reduction
discussed with [facility] advanced HF, Dr. Murray: accepted for transfer for evaluation of advanced therapies, bed pending
Impression / Plan
-
I/P: 54F with LBBB & mixed hyperlipidemia presents with shortness of breath and tachycardia.
Primary high lead yarder: Dr. Junior
HFrEF (EF 10-15%), severe, acute with cardiogenic shock
NICM, dilated LVEDD 7cm
-increase lasix to 80mg IV bid; this requires intensive monitoring
-GDMT as tolerated:
-SIVAN/ARB/ARNI: did not tolerate due to low BP
-SGLT2 inhibitor: eventually
-Aldosterone agonist: eventually
-Beta nahid: Toprol XL 12.5mg daily
-Isosorbide/Hydralazine:�discussed with [facility], will try hydralazine 10mg tid for afterload reduction
-ICD: Re-assess LVEF in 3 months after max tolerated therapy for PHARMACEUTICAL LABORATORY TECHNICIAN-D, or sooner given NSVT
-Cardiac catheterization September 07 below
-discussed with [facility] advanced HF, Dr. Murray: accepted for transfer for evaluation of advanced therapies, bed pending
Abnormal troponin, non-ischemic myocardial injury in the setting of acute HF
-CP free
-Remains flat (0.045, 0.060, 0.065, 0.050)
NSVT
-up to 17 beats on outpatient monitor; none here
-if recurs, will start amiodarone
-Toprol XL
LBBB
-new
Mitral regurgitation, moderate to severe
-Diuresis as above
Tricuspid regurgitation, moderate, PASP 65-70mmHg
Dyslipidemia
-Not on a statin as ASCVD risk was low (1.1%)
EtOH, 2 glasses every evening
Former smoker, continued cessation recommended
Cath September 07: CONCLUSIONS
1. Evidence of cardiogenic shock with severely elevated biventricular filling pressures, moderate postcapillary pulmonary hypertension, and severely reduced cardiac output with stroke-volume index 15-18 mL/m2 in setting of sinus tachycardia. Of
note, PA pulsatility is severely reduced with Barry of <0.2. PA pressure and PCWP confirmed in both right and left lungs.
2. Normal coronary arteries and a left dominant system.
Physical Exam
Vital Signs/Labs
Vital Signs
Temp Pulse Resp BP Pulse Ox
97.7 F 109 20 89/70 97
09/09/24 06:49 09/09/24 08:22 09/09/24 06:49 09/09/24 08:22 09/09/24 06:49
09/08/24 09/09/24 09/10/24
06:59 06:59 06:59
Actual Weight 59.5 kg 60.2 kg
09/08/24 04:07
09/09/24 04:40
APTT Cancelled 09/07/24 20:00
Magnesium 1.7 mg/dl (1.6-2.3) 09/09/24 04:40
Triglycerides 73 mg/dl (10-149) 09/07/24 04:28
LDL Cholesterol, Calc 94 mg/dl 09/07/24 04:28
VLDL Cholesterol, Calc 14 mg/dl (0-30) 09/07/24 04:28
HDL Cholesterol 72 mg/dl 09/07/24 04:28
09/06/24
18:22
Izm-Q-Gqbbrfncnqb Pept 6210
LAB Results
09/06/24 09/06/24 09/07/24
18:22 21:12 00:33
Troponin I 0.045 H* 0.060 H* D 0.065 H*
09/07/24 09/07/24
04:29 06:11
Troponin I 0.050 H* Cancelled
Physical Exam
Constitutional: No acute distress and Comfortable
EENT: Moist mucous membranes
Cardiovascular: Rhythm & rate is regular, Pedal edema is absent, Pedal edema present and JVD present
Respiratory: Respiratory effort normal and Lungs clear to auscul.
Neuro/Psych: AO x 3
Data Reviewed
-
Date of Service: September 09, 2024
EKG: Other (Tele: ST 100-120)
Echo: Report Reviewed by me
Labs: Labs Reviewed by me
[2024-09-09] MEDS: LASIX IV (10:46)
[2024-09-09] MEDS: APRESOLINE 10 MG PO ×3 (10:53→23:51)
[2024-09-09] MEDS: LASIX 80 MG IV ×2 (10:53→16:59)
--- NOTE | 2024-09-09 11:11 | PTCARENOTE ---
Patient very emotional and tearful after speaking with cardiology and need for [facility] transfer. ST in the 120's-130's at rest and BP 110/93. IV lasix 80mg given and PO hydralazine as ordered.
--- NOTE | 2024-09-09 14:25 | CM ---
CM following for DC planning needs.
Reviewed plan for transfer to [facility] once bed becomes avail.
Pt. aware, agreeable.
[employer] has met with patient to initiate medical assistance application. Patient has limited insurance plan that only covers a limited amount of hospital days.
Will cont. to follow.
[2024-09-09] MEDS: TOPROL XL 12.5 MG PO (14:53)
[2024-09-09] MEDS: LOVENOX 40 MG SC (16:58)
[2024-09-10] VITALS (8 sets, daily range): BP systolic 88–107; BP diastolic 62–80; BMI 20.5
--- NOTE | 2024-09-10 | PTCARENOTE ---
Received patient from change of shift. ST on the monitor, HR in the 110s. R radial and brachial sites MAGGI, intact. No complaints from pt at this time, call thomas within reach.
[2024-09-10 05:54] LABS: Blood Urea Nitrogen 25 mg/dl (7-17); Calcium 9.2 mg/dl (8.4-10.2); Carbon Dioxide 31 mmol/L (22-30); Chloride 101 mmol/L (98-107); Estimated Creatinine Clearance 88 ml/min; Glucose 98 mg/dl (70-99); Magnesium 1.7 mg/dl (1.6-2.3); Potassium 4.0 mmol/L (3.5-5.1); Sodium 136 mmol/L (135-145); eGFR > 60.00
--- NOTE | 2024-09-10 07:01 | W.PN.HOSP.TC ---
Today's Communication/Plan
-
transfer to [facility] when bed available
Assessment / Plan
Assessment / Plan
Physical Exam
General: No Apparent Distress
HEENT: PERRLA
Respiratory: Clear to Auscultation
Cardiac: S1/S2 and JVD
GI: Soft and Nontender
Musculoskeletal: No Edema
Skin: Warm and Dry; Negative Rash
Neuro: AO x 3 conversant coherent
Psych: Calm
54F p/w tachycardia and SOB. Patient was supposed to have cataract surgery and was found to be tachycardic during the preop. She saw cardiology as outpatient and the plan was for her to get outpt monitor as well as an echo and a stress test.
Insurance denied echo and stress test. She has been feeling more short of breath lately which prompted her to visit ER.
CT PE study-no evidence of PE. Cardiomegaly with pronounced dilation of the LV. Findings suggestive of mild pulmonary edema with small right and left pleural effusions
Echo 09/07/2024-dilated LV with severely reduced LV SF. EF 10 to 15%. Moderate to severe MR. Moderate TR. Severe pulmonary hypertension RA pressure 65 to 70 mmHg.
Cardiac Cath 09/07
CONCLUSIONS
1. Evidence of cardiogenic shock with severely elevated biventricular filling pressures, moderate postcapillary pulmonary hypertension, and severely reduced cardiac output with stroke-volume index 15-18 mL/m2 in setting of sinus tachycardia. Of
note, PA pulsatility is severely reduced with Barry of <0.2. PA pressure and PCWP confirmed in both right and left lungs.
2. Normal coronary arteries and a left dominant system.
# Acute vs chronic HFrEF
-new finding depressed EF, EF 10-15%
-s/p cardiac cath on 09/07 with evidence of cardiogenic shock with severely elevated biventricular filling pressures, reduced cardiac output; no significant CAD
-continue IV Lasix
-Entresto attempted but then discontinued due to low pressures
-Metoprolol XL 12.5 mg daily
-Hydralazine for afterload reduction as per Cardio discussion w/ [facility]
-Cardio eval appreciated patient accepted for transfer to [facility] for advanced HF care/tx, Dr Murray accepting
# Tachyarrhythmia /left bundle branch block abnormal troponin
NSVT seen on outpatient holter
-metop XL initiated as above
# Hypomagnesemia
# Hypokalemia
monitor and replete as necessary
# 2 glasses of wine every night- Thiamine supplementation. No significant withdrawal symptoms noted
# Ex-smoker
# DVT prophylaxis- Lovenox
# Full code
I spent a total of 40 minutes with the patient or on the floor. More than 50% of this time involved counseling and coordination of care.
Anticipated Discharge: Within 24 hours
Subjective/Interval History
-
Date of Service: September 10, 2024
No acute distress, sitting up comfortably in bed. Reports improvement in appetite. Intermittent palpitations but denies chest pain.
Objective Data
-
Labs:
Laboratory Results
09/10/24
04:38
Sodium 136
Potassium 4.0
Chloride 101
Carbon Dioxide 31 H
BUN 25 H
Creatinine 0.7
Glucose 98
Calcium 9.2
Vital Signs:
Vital Signs
Temp Pulse Resp BP Pulse Ox
97.8 F 112 15 91/63 96
09/10/24 02:50 09/10/24 05:00 09/10/24 02:50 09/10/24 02:18 09/10/24 02:50
I&O
09/09/24 09/10/24 09/11/24
06:59 06:59 06:59
Intake Total 720 / 720 712 / 712
Output Total 800 / 800 2100 / 2100
Balance -80 / -80 -1388 / -1388
--- NOTE | 2024-09-10 07:52 | W.PN.CD ---
Today's Communication / Plan
-
continue IV lasix
continue hydralazine
awaiting transfer to [facility]
Impression / Plan
-
I/P: 54F with LBBB & mixed hyperlipidemia presents with shortness of breath and tachycardia.
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
HFrEF (EF 10-15%), severe, acute with cardiogenic shock
NICM, dilated LVEDD 7cm
-increased lasix to 80mg IV bid on 09/09; this requires intensive monitoring
-GDMT as tolerated:
-SIVAN/ARB/ARNI: did not tolerate due to low BP
-SGLT2 inhibitor: eventually
-Aldosterone agonist: eventually
-Beta nahid: Toprol XL 12.5mg daily
-Isosorbide/Hydralazine:�discussed with [facility], added hydralazine 10mg tid for afterload reduction 09/09
-ICD: Re-assess LVEF in 3 months after max tolerated therapy for [employer]-D, or sooner given NSVT
-Cardiac catheterization September 07 below
-discussed with [facility] advanced HF, Dr. Murray: accepted for transfer for evaluation of advanced therapies, bed pending
Abnormal troponin, non-ischemic myocardial injury in the setting of acute HF
-CP free
-Remains flat (0.045, 0.060, 0.065, 0.050)
NSVT
-up to 17 beats on outpatient monitor; none here
-if recurs, will start amiodarone
-Toprol XL
LBBB
-new
Mitral regurgitation, moderate to severe
-Diuresis as above
Tricuspid regurgitation, moderate, PASP 65-70mmHg
Dyslipidemia
-Not on a statin as ASCVD risk was low (1.1%)
EtOH, 2 glasses every evening
Former smoker, continued cessation recommended
Cath September 07: CONCLUSIONS
1. Evidence of cardiogenic shock with severely elevated biventricular filling pressures, moderate postcapillary pulmonary hypertension, and severely reduced cardiac output with stroke-volume index 15-18 mL/m2 in setting of sinus tachycardia. Of
note, PA pulsatility is severely reduced with Barry of <0.2. PA pressure and PCWP confirmed in both right and left lungs.
2. Normal coronary arteries and a left dominant system.
Physical Exam
Vital Signs/Labs
Vital Signs
Temp Pulse Resp BP Pulse Ox
97.8 F 112 15 91/63 96
09/10/24 02:50 09/10/24 05:00 09/10/24 02:50 09/10/24 02:18 09/10/24 02:50
09/09/24 09/10/24 09/11/24
06:59 06:59 06:59
Actual Weight 60.2 kg 59.3 kg
09/08/24 04:07
09/10/24 04:38
APTT Cancelled 09/07/24 20:00
Magnesium 1.7 mg/dl (1.6-2.3) 09/10/24 04:38
Triglycerides 73 mg/dl (10-149) 09/07/24 04:28
LDL Cholesterol, Calc 94 mg/dl 09/07/24 04:28
VLDL Cholesterol, Calc 14 mg/dl (0-30) 09/07/24 04:28
HDL Cholesterol 72 mg/dl 09/07/24 04:28
09/06/24
18:22
[id number] Pept 6210
LAB Results
09/07/24
06:11
Troponin I Cancelled
Physical Exam
Constitutional: No acute distress
EENT: Moist mucous membranes
Cardiovascular: Rhythm & rate is regular, Pedal edema is absent, Pedal edema present and JVD present
Respiratory: Respiratory effort normal and Lungs clear to auscul.
Neuro/Psych: AO x 3
Data Reviewed
-
Date of Service: September 10, 2024
EKG: Other (Tele: ST 100-120, 4 beats NVST)
Labs: Labs Reviewed by me
[2024-09-10] MEDS: LASIX 80 MG IV ×2 (09:45→17:02)
[2024-09-10] MEDS: VITAMIN B1 100 MG PO ×2 (09:45→20:26)
[2024-09-10] MEDS: APRESOLINE 10 MG PO ×3 (09:45→23:35)
[2024-09-10] MEDS: FLUSH (NSS) 2 FLUSH IV (09:46)
--- NOTE | 2024-09-10 10:32 | PTCARENOTE ---
Elbert telephoned for update, no bed available as of yet, patient is aware. Offers no complaints, BP stable and able to receive AM dose of IV lasix and hydralazine. Measuring her urine in the bathroom, resting in bed, call william in reach.
[2024-09-10] MEDS: TOPROL XL 12.5 MG PO (14:51)
[2024-09-10] MEDS: LOVENOX 40 MG SC (17:01)
[2024-09-11] VITALS (9 sets, daily range): BP systolic 82–102; BP diastolic 57–72; BMI 20.3
[2024-09-11 05:22] LABS: Blood Urea Nitrogen 32 mg/dl (7-17); Calcium 9.3 mg/dl (8.4-10.2); Carbon Dioxide 27 mmol/L (22-30); Chloride 99 mmol/L (98-107); Estimated Creatinine Clearance 76 ml/min; Glucose 105 mg/dl (70-99); Potassium 4.1 mmol/L (3.5-5.1); Sodium 137 mmol/L (135-145); eGFR > 60.00
--- NOTE | 2024-09-11 05:39 | PTCARENOTE ---
Pt ST on monitor with HR 100-110BPM. Denies SOB or any discomfort. Ambulates independently in the room, call thomas within reach
[2024-09-11] MEDS: VITAMIN B1 100 MG PO (09:08)
--- NOTE | 2024-09-11 09:25 | W.PN.HOSP.TC ---
Today's Communication/Plan
-
cont Lasix Hydralazine as per Cardio
transfer to [facility] when bed available.
Assessment / Plan
Assessment / Plan
Physical Exam
General: No Apparent Distress
HEENT: PERRLA
Respiratory: Clear to Auscultation
Cardiac: S1/S2 and JVD
GI: Soft and Nontender
Musculoskeletal: No Edema
Skin: Warm and Dry; Negative Rash
Neuro: AO x 3 conversant coherent
Psych: Calm
54F p/w tachycardia and SOB. Patient was supposed to have cataract surgery and was found to be tachycardic during the preop. She saw cardiology as outpatient and the plan was for her to get outpt monitor as well as an echo and a stress test.
Insurance denied echo and stress test. She has been feeling more short of breath lately which prompted her to visit ER.
CT PE study-no evidence of PE. Cardiomegaly with pronounced dilation of the LV. Findings suggestive of mild pulmonary edema with small right and left pleural effusions
Echo 09/07/2024-dilated LV with severely reduced LV SF. EF 10 to 15%. Moderate to severe MR. Moderate TR. Severe pulmonary hypertension RA pressure 65 to 70 mmHg.
Cardiac Cath 09/07
CONCLUSIONS
1. Evidence of cardiogenic shock with severely elevated biventricular filling pressures, moderate postcapillary pulmonary hypertension, and severely reduced cardiac output with stroke-volume index 15-18 mL/m2 in setting of sinus tachycardia. Of
note, PA pulsatility is severely reduced with Barry of <0.2. PA pressure and PCWP confirmed in both right and left lungs.
2. Normal coronary arteries and a left dominant system.
# Acute vs chronic HFrEF
-new finding depressed EF, EF 10-15%
-s/p cardiac cath on 09/07 with evidence of cardiogenic shock with severely elevated biventricular filling pressures, reduced cardiac output; no significant CAD
-Entresto attempted but then discontinued due to low pressures
-Metoprolol XL 12.5 mg daily
-Hydralazine for afterload reduction as per Cardio discussion w/ [facility]
-Cardio eval appreciated patient accepted for transfer to [facility] for advanced HF care/tx, Dr Murray accepting
-IV lasix reduced from BID to daily 80 mg as per cardio
# Tachyarrhythmia /left bundle branch block abnormal troponin
NSVT seen on outpatient holter
-metop XL as above
# Hypomagnesemia
# Hypokalemia
monitor and replete as necessary
# 2 glasses of wine every night- Thiamine supplementation. No significant withdrawal symptoms noted
# Ex-smoker
# DVT prophylaxis- Lovenox
# Full code
discussed with patient and patient's father Pal
I spent a total of 40 minutes with the patient or on the floor. More than 50% of this time involved counseling and coordination of care.
Anticipated Discharge: Within 24 hours
Subjective/Interval History
-
Date of Service: September 11, 2024
No acute distress sitting up comfortably in bed. Reports overall feeling well. Noted intermittent episodes lightheadedness prompting hold morning Lasix and Hydralazine.
Objective Data
-
Labs:
Laboratory Results
09/11/24
04:16
Sodium 137
Potassium 4.1
Chloride 99
Carbon Dioxide 27
BUN 32 H
Creatinine 0.8
Glucose 105 H
Calcium 9.3
Vital Signs:
Vital Signs
Temp Pulse Resp BP Pulse Ox
97.7 F 97 16 89/70 99
09/11/24 07:57 09/11/24 09:12 09/11/24 07:57 09/11/24 09:12 09/11/24 07:57
I&O
09/10/24 09/11/24 09/12/24
06:59 06:59 06:59
Intake Total 712 / 712 480 / 480
Output Total 2100 / 2100 3250 / 3250
Balance -1388 / -1388 -2770 / -2770
--- NOTE | 2024-09-11 10:24 | W.PN.CD ---
Today's Communication / Plan
-
Patient in no distress this morning and generally feels a little bit better than she did when she came in. Denies orthopnea or shortness of breath at rest. Some brief lightheadedness when standing yesterday but otherwise had denied
lightheadedness. Lower blood pressures this morning. Weight is trending down
- Will hold morning dose of Lasix and changed to daily dosing
- Will try and continue hydralazine as blood pressure allows but will hold morning dose as we are monitoring
- Patient still on list for transfer to [facility]
Impression / Plan
-
I/P: 54F with LBBB & mixed hyperlipidemia presents with shortness of breath and tachycardia.
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
HFrEF (EF 10-15%), severe, acute with cardiogenic shock
NICM, dilated LVEDD 7cm
-increased lasix to 80mg IV bid on 09/09. Some lower pressures so Lasix changed back to daily dosing 09/11/2024
-GDMT as tolerated:
-SIVAN/ARB/ARNI: did not tolerate due to low BP
-SGLT2 inhibitor: eventually
-Aldosterone agonist: eventually
-Beta nahid: Toprol XL 12.5mg daily
-Isosorbide/Hydralazine:�discussed with [facility], added hydralazine 10mg tid for afterload reduction 09/09
-ICD: Re-assess LVEF in 3 months after max tolerated therapy for [employer]ER-D, or sooner given NSVT
-Cardiac catheterization September 07 below
- Dr. Junior discussed with [facility] advanced HF, Dr. Murray: accepted for transfer for evaluation of advanced therapies, bed pending
Abnormal troponin, non-ischemic myocardial injury in the setting of acute HF
-CP free
-Remains flat (0.045, 0.060, 0.065, 0.050)
NSVT
-up to 17 beats on outpatient monitor; none here
-if recurs, will start amiodarone
-Toprol XL
LBBB
-new
Mitral regurgitation, moderate to severe
-Diuresis as above
Tricuspid regurgitation, moderate, PASP 65-70mmHg
Dyslipidemia
-Not on a statin as ASCVD risk was low (1.1%)
EtOH, 2 glasses every evening
Former smoker, continued cessation recommended
Cath August 15: CONCLUSIONS
1. Evidence of cardiogenic shock with severely elevated biventricular filling pressures, moderate postcapillary pulmonary hypertension, and severely reduced cardiac output with stroke-volume index 15-18 mL/m2 in setting of sinus tachycardia. Of
note, PA pulsatility is severely reduced with Barry of <0.2. PA pressure and PCWP confirmed in both right and left lungs.
2. Normal coronary arteries and a left dominant system.
Physical Exam
Vital Signs/Labs
Vital Signs
Temp Pulse Resp BP Pulse Ox
97.7 F 97 16 89/70 99
09/11/24 07:57 09/11/24 09:12 09/11/24 07:57 09/11/24 09:12 09/11/24 07:57
09/10/24 09/11/24 09/12/24
06:59 06:59 06:59
Actual Weight 59.3 kg 58.6 kg
09/08/24 04:07
09/11/24 04:16
APTT Cancelled 09/07/24 20:00
Magnesium 1.7 mg/dl (1.6-2.3) 09/10/24 04:38
Triglycerides 73 mg/dl (10-149) 09/07/24 04:28
LDL Cholesterol, Calc 94 mg/dl 09/07/24 04:28
VLDL Cholesterol, Calc 14 mg/dl (0-30) 09/07/24 04:28
HDL Cholesterol 72 mg/dl 09/07/24 04:28
09/06/24
18:22
[id number] Pept 6210
Physical Exam
Constitutional: No acute distress
Cardiovascular: Rhythm & rate is regular
Respiratory: Respiratory effort normal
GI: Soft
Neuro/Psych: Alert, Oriented and AO x 3
Data Reviewed
-
Date of Service: September 11, 2024
Medical Decision Making: External Notes and Reviewed Test Results
Labs: Labs Reviewed by me
[2024-09-11] MEDS: APRESOLINE PO (10:52)
[2024-09-11] MEDS: LASIX IV (10:52)
--- NOTE | 2024-09-11 11:05 | PTCARENOTE ---
Assumed care. Patient resting comfortably, SR-ST 80-106, BP 89/70 left, and 82/57. Lasix and hydralazine held and Dr Mark notified. Did report some intermittent lightheadedness this morning standing at the sink in the bathroom, lightheadedness
when she is attempting to fall asleep and just feels overwhelming fatigue. Reassess BP in bed, HOB flat 90/67, HR 103, POX 97% on room air
[2024-09-11] MEDS: TOPROL XL 12.5 MG PO (14:28)
[2024-09-11] MEDS: APRESOLINE 10 MG PO (15:45)
--- NOTE | 2024-09-11 15:50 | PTCARENOTE ---
BP 90/72 in the chair left arm. Hydralazine given. Patient denies feelings of lightheadedness. [facility] bed available, waiting for call back to give report
--- NOTE | 2024-09-11 16:16 | PTCARENOTE ---
Report called to [facility] [phone], ambulance transport to pick patient up at 1630 today
--- NOTE | 2024-09-11 17:09 | PTCARENOTE ---
Patient picked up ambulance, all belongings sent
--- NOTE | 2024-09-11 17:17 | W.DCSUMMARY ---
Discharge Summary
Discharge Data
Date of Admission: 09/06/24
Date of Discharge: 09/11/24
-
Pending Results: No
Discharge Plan
-
Patient Disposition: Acute Care Hospital
Discharge Orders:
Discharge Patient (As Directed); Ordered 09/10/24
Ordered By: Calixto Cortés
Discharge Date and Time
Discharge Date/Time: 09/11/24 17:17
Print Language: [email or web address]
== END 2024-09-11 17:17 | disposition short-term general hospital (02) | DRG 286 ==
LOC: IVU 22:12
PROVIDERS: Emergency Medicine; Hospitalist; Internal Medicine; Nurse Practitioner Family; Student in an Organized Health Care Education/Training Program; ADMITTING PHYSICIAN Hospitalist; ATTENDING PHYSICIAN Internal Medicine; EMERGENCY PHYSICIAN Emergency Medicine; OTHER PHYSICIAN Internal Medicine Cardiovascular Disease
PROC: B2111ZZ Fluoroscopy of Multiple Coronary Arteries using Low Osmolar Contrast (ICD-10-PCS; 2024-09-07)
PROC: 4A023N8 Measurement of Cardiac Sampling and Pressure, Bilateral, Percutaneous Approach (ICD-10-PCS; 2024-09-07)
DX: I50.21 Acute systolic (congestive) heart failure (principal); R57.0 Cardiogenic shock; I42.8 Other cardiomyopathies; I47.10 Supraventricular tachycardia, unspecified; I47.20 Ventricular tachycardia, unspecified; I5A Non-ischemic myocardial injury (non-traumatic); I27.20 Pulmonary hypertension, unspecified; E83.42 Hypomagnesemia; E87.6 Hypokalemia; E78.2 Mixed hyperlipidemia; I08.1 Rheumatic disorders of both mitral and tricuspid valves; I44.7 Left bundle-branch block, unspecified; H26.9 Unspecified cataract; E78.00 Pure hypercholesterolemia, unspecified; R63.4 Abnormal weight loss; Z60.2 Problems related to living alone; Z82.3 Family history of stroke; Z82.49 Family history of ischemic heart disease and other diseases of the circulatory system; Z87.891 Personal history of nicotine dependence; Z59.71 Insufficient health insurance coverage; Z68.20 Body mass index [BMI] 20.0-20.9, adult
CPT/HCPCS: 71045; 71275; 80048; 80053; 80061; 83036; 83735; 83880; 84443; 84484; 85025; 85027; 85730; 93005; 93306; 93460; 96365; 96375; 99152; 99153; 99285; C1769; C1894; Q9967